=== PATIENT | female | born 1995 | race Caucasian/White ===

== ENCOUNTER 2020-07-02 15:49 | Emergency (ER) | payer OTHER ==
[~2020-07-02] VITALS: Ht 160 cm; Wt 63.0 kg
[2020-07-02 17:26] LABS: CLARITY URINE CLEAR (CLEAR); COLOR URINE YELLOW (YELLOW); KETONES URINE NEGATIVE (NEGATIVE); LEUKOCYTE ESTERASE URINE TRACE (NEGATIVE); NITRITE URINE NEGATIVE (NEGATIVE); OCCULT BLOOD URINE TRACE (NEGATIVE); PROTEIN URINE NEGATIVE (NEGATIVE); SPECIFIC GRAVITY URINE 1.013 (1.005-1.030); UROBILINOGEN URINE 0.2 E.U./dL (0.2-1.0)
[2020-07-02 17:27] VITALS: BP 127/79
[2020-07-02 17:27] LABS: BASOPHILS % 0.4 % (0.0-2.0); EOSINOPHILS % 1.6 % (0.0-5.0); HEMATOCRIT. 39.5 % (36.0-48.0); HEMOGLOBIN. 13.1 g/dL (12.0-16.0); MEAN CORPUSCULAR HEMOGLOBIN 27.1 pg (28.0-32.0); MEAN CORPUSCULAR VOLUME 81.8 fL (81.0-99.0); MEAN PLATELET VOLUME 9.6 fl (7.4-10.4); PLATELET 243 x1000/uL (130-400); RED BLOOD CELL COUNT 4.83 mill/uL (4.2-5.4); RED CELL DISTRIBUTION WIDTH 12.8 % (11.6-14.6)
[2020-07-02 17:32] LABS: CHLORIDE 106 mEq/L (98-107)
[2020-07-02 17:55] LABS: B-HCG QUANTITATIVE 64294 mIU/mL (<3)
== END 2020-07-02 19:10 | disposition home or self-care (01) ==
LOC: ER 15:49
DX: O20.0 Threatened abortion (principal); O26.891 Other specified pregnancy related conditions, first trimester; R10.9 Unspecified abdominal pain; Z98.890 Other specified postprocedural states; Z3A.09 9 weeks gestation of pregnancy
CPT/HCPCS: 36415; 76801; 80048; 81003; 81025; 84702; 85025; 86850; 86900; 93005; 99285